=== PATIENT | female | born 1980 | race African-American/Black ===

== ENCOUNTER 2018-09-22 18:51 | Emergency (ER) | payer OTHER, SELFPAY ==
[2018-09-22 18:57] VITALS: BP 127/75; PULSE 112; RESP 16; TEMP 39.2; O2SAT 100
--- NOTE | 2018-09-22 19:00 | ED.URI ---
HPI - URI/Sore Throat <Aundrea Collins PA-C - Last Filed: 09/22/18 21:35> General Chief Complaint: Upper Respiratory Symptoms Stated Complaint: fever, sore throat, difficulty swallowing Time Seen by Provider: 09/22/18 19:00 Source: patient Mode of arrival: ambulatory Limitations: no limitations History of Present Illness HPI Narrative: This 37-year-old female comes in due to sore throat and fever. She states that she had some cold symptoms prior with congestion and cough, however felt like it was getting better. Yesterday afternoon she started to have chills, then felt warm last night. She woke up with a severe sore throat this morning and temperature is in the 100 range. She states very difficult to swallow due to the sore throat. Her was diagnosed with strep throat a few days ago. She took 1 of his amoxicillin this morning. She denies earache, does have some headache and generalized achiness. She denies any wheeze, dyspnea. She denies any recent travel or other known exposures. 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 She denies any other complaints on systems review. She took Tylenol this afternoon and was able to swallow that Related Data Previous Rx's Medication Instructions Recorded amoxicillin 500 mg PO Q8H #30 tab 09/22/18 lidocaine HCl [Lidocaine Viscous] 15 ml PO Q3-4H PRN #150 ml 09/22/18 Allergies Allergy/AdvReac Type Severity Reaction Status Date / Time Egg Derived Allergy Verified 09/22/18 18:57 Review of Systems <Aundrea Collins PA-C - Last Filed: 09/22/18 21:35> Review of Systems ROS Unobtainable: All systems reviewed & are unremarkable except as noted in HPI and below PFSH <Aundrea Collisn PA-C - Last Filed: 09/22/18 21:35> Medical History (Updated 09/22/18 @ 19:41 by Aundrea Collins PA-C) Healthy female adult (Chronic) Surgical History (Updated 09/22/18 @ 19:12 by Aundrea Collins PA-C) Status post (Resolved) Social History Smoking Status: Never smoker Social History Smoking Status: Never smoker Exam <Aundrea Collins PA-C - Last Filed: 09/22/18 21:35> Narrative Exam Narrative: GENERAL APPEARANCE: Patient sitting comfortably, in no distress. HEAD: No sinus TTP. EYES: PERRL, EOMI. EARS: Normal auditory canals, TMS intact with dull light reflexes ORAL CAVITY: Normal oropharynx. THROAT: Erythematous with enlarged tonsils bilaterally, small amount of exudate, no uvular deviation NECK/THYROID: Neck supple, full range of motion, tender anterior cervical lymphadenopathy. No posterior nodes LUNGS: Clear to auscultation bilaterally, no cough on exam. HEART: RRR without murmur, nl S1, S2, no S3 or S4. DERMATOLOGIC: No exanthem Initial Vital Signs Initial Vital Signs: Vital Signs Temperature 102.5 F H 09/22/18 18:57 Pulse Rate 112 H 09/22/18 18:57 Respiratory Rate 16 09/22/18 18:57 Blood Pressure 127/75 09/22/18 18:57 Pulse Oximetry 100 09/22/18 18:57 <Nanda Parisi MD - Last Filed: 09/24/18 08:44> Initial Vital Signs Initial Vital Signs: Vital Signs Temperature 102.5 F H 09/22/18 18:57 Pulse Rate 112 H 09/22/18 18:57 Respiratory Rate 16 09/22/18 18:57 Blood Pressure 127/75 09/22/18 18:57 Pulse Oximetry 100 09/22/18 18:57 Course <Aundrea Collins PA-C - Last Filed: 09/22/18 21:35> Orders Ordered: Discontinued Medications Ibuprofen (Advil) 800 mg PO NOW ONE Stop: 09/22/18 19:09 Last Admin: 09/22/18 19:25 Dose: 800 mg Vital Signs - 8 hr 09/22/18 18:57 09/22/18 19:25 09/22/18 19:47 Temperature 102.5 F H 102.5 F H 100.1 F H Pulse Rate 112 H 103 H Respiratory Rate 16 15 Blood Pressure 127/75 Pulse Oximetry 100 98 <Nanda Parisi MD - Last Filed: 09/24/18 08:44> Orders Ordered: Discontinued Medications Ibuprofen (Advil) 800 mg PO NOW ONE Stop: 09/22/18 19:09 Last Admin: 09/22/18 19:25 Dose: 800 mg Vital Signs - 8 hr 09/22/18 18:57 09/22/18 19:25 09/22/18 19:47 Temperature 102.5 F H 102.5 F H 100.1 F H Pulse Rate 112 H 103 H Respiratory Rate 16 15 Blood Pressure 127/75 Pulse Oximetry 100 98 Discharge Plan Departure Patient Disposition: Home Clinical Impression: Strep throat Discharge Date/Time: 09/22/18 19:51 Interventions: ED Discharge Assessment Last Done: 09/22/18 19:47 Instructions: DI for Strep Throat Activity Restrictions/Additional Instructions: Based on your exposure and symptoms today, you need to be treated for strep throat. I have sent a prescription for amoxicillin to [facility] for you since you took a dose of that already this morning. I have also sent in a prescription for some anesthetic for your throat to help with pain when you eat and swallow. Please take ibuprofen 600-800 mg every 8 hours to help with pain and swelling and add Tylenol as needed. Please return here if you have any acutely worsening symptoms, i.e. difficulty breathing or feeling like your throat is closing to wear you can't manage your saliva etc. Please remain off of work until you have been on antibiotics for 2-3 days and do not have fever. Please see your PCP if you are not better by the end of this week. Prescriptions: New amoxicillin 500 mg tablet 500 mg PO Q8H Qty: 30 RF: 0 lidocaine HCl [Lidocaine Viscous] 2 % solution 15 ml PO Q3-4H PRN (Reason: sore throat) Qty: 150 RF: 0 Referrals: Augusta Villaseñor DO [Primary Care Provider] -
[2018-09-22 19:25] VITALS: TEMP 39.2
[2018-09-22] MEDS: IBUPROFEN 400 MG TABLET 800 MG PO (19:25)
[2018-09-22 19:47] VITALS: PULSE 103; RESP 15; TEMP 37.8; O2SAT 98
== END 2018-09-22 19:51 | disposition home or self-care (01) ==
PROVIDERS: Emergency Provider Internal Medicine; Family Provider Family Medicine; PCP Family Medicine
DX: J02.0 Streptococcal pharyngitis (principal)
CPT/HCPCS: 99282; 99283